=== PATIENT | male | born 1965 | race Caucasian/White ===

== ENCOUNTER 2022-05-13 07:17 | Day surgery (SDC) | payer OTHER ==
[2022-05-13] VITALS (9 sets, daily range): BP systolic 112–166; BP diastolic 90–136
[~2022-05-13] VITALS: Ht 187 cm; Wt 140.0 kg
[2022-05-13] MEDS ORDERED: NS IV 1000 ML 1,000 ML ONE (07:40)
[2022-05-13] MEDS ORDERED: NS IV 1000 ML 1,000 ML IV SCH (08:00)
[2022-05-13] MEDS ORDERED: LIDOCAINE 2% VISCOUS 15 ML UDC PO ONE (08:00)
[2022-05-13] MEDS ORDERED: ADENOSINE 6 MG/2 ML (ADENOCARD) VIAL IV ONE ×2 (08:09→08:15)
--- NOTE | 2022-05-13 08:09 | Diagnostic Imaging Report ---
INDICATION: Preop for cardioversion Frontal chest obtained at 0751 a.m. Heart is mildly enlarged. There is no focal infiltrate or pneumothorax or pleural fluid. IMPRESSION: Cardiomegaly with no acute process in the chest. Dictated by: Dictated on workstation # [id number]
--- NOTE | 2022-05-13 08:18 | Cardiac Procedure Note-CS/ASA ---
Pre-Procedure Note Pre-Op Procedure Note Date of Available H&P: May 05, 2022 Date H&P Reviewed: May 13, 2022 Time H&P Reviewed: 08:18 History & Physical: H&P Reviewed, Patient Examed, No changes noted Pre-Operative Diagnosis: atrial flutter Conscious Sedation Pre-Proced Time 08:18 ASA Score 3 For ASA 3 and 4: Consider anesthesia and medical clearance. Also, for patients with a history of failed moderate sedation consider anesthesia. Airway Lungs Heart ASA score ASA 1: a normal healthy patient ASA 2: a patient with a mild systemic disease (mid diabetes, controlled hypertension, obesity ASA 3: a patient with a severe systemic disease that limits activity (angina, COPD, prior Myocardial infarction) ASA 4: a patient with an incapacitating disease that is a constant threat to life (CHF, renal failure) ASA 5: a moribund patient not expected to survive 24 hrs. (ruptured aneurysm) ASA 6: a declared brain- patient whose organs are being harvested. For emergent operations, add the letter E after the classification Mallampati Classification Grade 3 Sedation Plan Analgesia, Amnesia, Plan communicated to team members, Discussed options with patient/fam, Discussed risks with patient/fam The patient is an appropriate candidate to undergo the planned procedure, sedation, and anesthesia. The patient immediately re-assessed prior to indication. LEROY EDWARD MD May 13, 2022 08:18
[2022-05-13] MEDS ORDERED: LIDOCAINE 2% VISCOUS 15 ML UDC ONE (08:19)
[2022-05-13 08:20] LABS: HEMATOCRIT 45 % (40-54); HEMOGLOBIN 15.1 g/dL (13.3-17.7); MEAN CORPUSCULAR HEMOGLOBIN 32 pg (25-34); MEAN CORPUSCULAR HGB CONC 34 g/dL (32-36); MEAN CORPUSCULAR VOLUME 96 fL (80-99); MEAN PLATELET VOLUME 9.4 fL (9.0-12.2); PLATELET COUNT 173 10^3/uL (130-400); WHITE BLOOD COUNT 7.4 10^3/uL (4.3-11.0)
[2022-05-13] MEDS ORDERED: proPOfol 200 MG/20 ML (DIPRIVAN) VIAL IV ONE (08:23)
[2022-05-13] MEDS ORDERED: MIDAZOLAM 5 MG/5 ML (VERSED) VIAL ONE (08:25)
--- NOTE | 2022-05-13 08:29 | Anesthesia-General Post-Op ---
MAC Patient Condition Mental Status/LOC: Same as Preop Cardiovascular: Satisfactory Nausea/Vomiting: Absent Respiratory: Satisfactory Pain: Controlled Complications: Absent Post Op Complications Complications None Follow Up Care/Instructions Patient Instructions None needed. Anesthesiology Discharge Order Discharge Order Patient is doing well, no complaints, stable vital signs, no apparent adverse anesthesia problems. No complications reported per nursing. DANNIE PEÑA CRNA May 13, 2022 08:29
[2022-05-13 08:33] LABS: INR 1.1 (0.8-1.4); PROTHROMBIN TIME PATIENT 14.5 SEC (12.2-14.7)
[2022-05-13] MEDS ORDERED: ATOR80TA76 PO (08:34)
[2022-05-13] MEDS ORDERED: DIPH25TA31 PO (08:34)
[2022-05-13] MEDS ORDERED: FURO-125 PO (08:34)
[2022-05-13] MEDS ORDERED: ASPI-1238 PO (08:34)
[2022-05-13] MEDS ORDERED: EZET10TA49 PO (08:34)
[2022-05-13] MEDS ORDERED: DILT240C87 PO (08:34)
[2022-05-13] MEDS ORDERED: MELA1TAB20 PO (08:34)
[2022-05-13] MEDS ORDERED: MELO15TA39 PO (08:34)
[2022-05-13] MEDS ORDERED: APIX5TAB PO (08:34)
[2022-05-13] MEDS ORDERED: FURO20TA4 PO (08:34)
[2022-05-13] MEDS ORDERED: SOUR1000 PO (08:34)
[2022-05-13] MEDS ORDERED: OMEP40CA6 PO (08:34)
[2022-05-13] MEDS ORDERED: DIPH-757 PO (08:34)
[2022-05-13] MEDS ORDERED: OMEG100032 PO ×2 (08:34)
[2022-05-13 08:41] LABS: ALBUMIN 4.4 GM/DL (3.2-4.5); BILIRUBIN,TOTAL 0.9 MG/DL (0.1-1.0); CALCIUM 9.2 MG/DL (8.5-10.1); CREATININE SERUM 0.84 MG/DL (0.60-1.30); POTASSIUM 3.8 MMOL/L (3.6-5.0); TOTAL PROTEIN 7.4 GM/DL (6.4-8.2)
[2022-05-13] MEDS ORDERED: DABI150C5 PO (09:46)
--- NOTE | 2022-05-13 09:47 | Discharge Inst-Post CATH ---
Discharge Inst-CATH/EP Problems Reviewed?: Yes Post Cardiac Cath/EP D/C Inst Follow Up/Plan Appointment with Dr. Sanchez's office in 2 to 4 weeks <b>CARDIAC CATH/EP PROCEDURE DISCHARGE INSTRUCTIONS</b> ACTIVITY * Go Home directly and rest. * Limit activity of the leg (or wrist if it was used) for 7 days including aer obics, swimming, jogging, bicycling, etc. * Restrict stair-climbing for 7 days if possible, if not, climb up with your non-cath leg, then bring together on the same step. * Avoid lifting, pushing, pulling or excessive movement of the affected extremi ty for 7 days. * Customary sexual activity may be resumed after 2 days-use caution not to use a position that strains or causes pain to the affected extremity. * No driving for 24 hours. * NO SMOKING. * Avoid straining for bowel movements for 7 days. * Gentle walking on level ground is allowed. * Returning to work will depend on the type of procedure and the results. Your doctor will discuss this with you. CALL YOUR DOCTOR FOR ANY OF THE FOLLOWING: *If bleeding from the puncture site occurs- Apply gentle pressure to site with clean cloth and call your doctor or EMS. * If a knot or lump forms under the skin, increases in size, or causes pain. * If bruising appears to be worsening or moving further down your leg instead of disappearing. * Temperature above 101 F. CARE OF YOUR GROIN INCISION; * Bruising or purple discoloration of the skin near the puncture site is common. * You may shower only, no bathtub bathing for 5 days. Be careful to avoid slipping as your leg may feel stiff. * If a closure device was used on your femoral artery, please see the attached guide regarding care of the device and your leg. * Leave dressing on FOR 24 hours. CARE OF YOUR WRIST INCISION; * Bruising or purple discoloration of the skin near the puncture site is common. * You may shower. * DO NOT submerge wrist. * Leave dressing on FOR 24 hours. LEROY SANCHEZ MD May 13, 2022 09:47
--- NOTE | 2022-05-13 09:48 | Clinic Account Progress/Dx ---
Clinic Account Progress/Dx DIAGNOSIS: Date Seen by Provider: May 13, 2022 Time Seen by Provider: 09:47 Paroxysmal atrial flutter Palpitation Hypertension Hyperlipidemia LEROY EDWARD MD May 13, 2022 09:48
== END 2022-05-13 10:04 | disposition home or self-care (01) ==
LOC: CATH 07:17
PROVIDERS: ATTEND Internal Medicine Cardiovascular Disease
DX: I48.92 Unspecified atrial flutter (principal); I10 Essential (primary) hypertension; E78.5 Hyperlipidemia, unspecified; Z79.01 Long term (current) use of anticoagulants; Z86.73 Personal history of transient ischemic attack (TIA), and cerebral infarction without residual deficits; E78.2 Mixed hyperlipidemia; E66.9 Obesity, unspecified; Z68.41 Body mass index [BMI] 40.0-44.9, adult; G47.30 Sleep apnea, unspecified; E11.9 Type 2 diabetes mellitus without complications
CPT/HCPCS: 36415; 71045; 80053; 85027; 85610; 85730; 87081; 93005; 93312

== ENCOUNTER → 2022-06-10 | Outpatient (CLI) | payer OTHER ==
[~2022-06-10] MED LIST: APIX5TAB PO; ASPI-1238 PO; ATOR80TA76 PO; DABI150C5 PO; DILT240C87 PO; DIPH-757 PO; DIPH25TA31 PO; EZET10TA49 PO; FURO-125 PO; FURO20TA4 PO; MELA1TAB20 PO; MELO15TA39 PO; OMEG100032 PO; OMEP40CA6 PO; REGADENOSON 0.4 MG/5 ML SYR (LEXISCAN) IV ONE; SOUR1000 PO; meTOprolol 5 MG/5 ML (LOPRESSOR) VIAL IV ONE; meTOprolol 5 MG/5 ML (LOPRESSOR) VIAL ONE
[2022-06-10] MEDS: CATHETER FLUSH 10 ML SYR IVP PRN ×2 (12:02→12:20)
[2022-06-10 13:29] VITALS: BP 229/102
--- NOTE | 2022-06-10 15:15 | Cardiology Stress Test Report ---
Stress Test Report Date of Procedure/Referring: Date of Procedure: Jun 10, 2022 PCP Nirmal Estrella Admitting Physician Admitting Physician: Attending Physician: Bridgette Bazan Indications: atrial flutter Baseline Heart Rate: 138 Baseline Blood Pressure: Blood Pressure Systolic: 229 Blood Pressure Diastolic: 102 Baseline Vitals Vital Signs Date Time Temp Pulse Resp B/P (MAP) Pulse Ox O2 Delivery O2 Flow Rate FiO2 06/10/22 13:29 138 229/102 (144) Baseline EKG: Baseline EKG: Atrial flutter with rapid ventricular response Summary After explaining the procedure to the patient, he signed a consent and then brought to the stress nuclear laboratory. Patient received 0.4 mg Lexiscan for stress test, ECG, heart rate and blood pressure were monitored continuously. Resting and stress dose of radio tracer were injected, imaging was acquired and reviewed in short axis, horizontal long axis and vertical long axis views. TID: 1.09 SSS: 7 SDS: 0 EF: 38 1. Patient tolerated Lexiscan well 2. Baseline atrial flutter with rapid ventricular response persisted during test, patient received Lopressor 5 mg IV at the end of the test. 3. Baseline hypertension persisted during test 4. Fixed defect involving the mid to apical inferior wall with no reversibility 5. Normal left ventricular size with diffuse hypokinesia with ejection fraction 38%, gated images are unreliable due to underlying atrial flutter Copy Copies To 1: CARIDAD HURLEY MD Copies To 2: [facility]/LEROY HERRERA MD Jun 10, 2022 15:15
== END ==
LOC: CARD 11:26
PROVIDERS: ATTEND Physician Assistant
DX: I11.9 Hypertensive heart disease without heart failure (principal); I25.10 Atherosclerotic heart disease of native coronary artery without angina pectoris; I48.91 Unspecified atrial fibrillation
CPT/HCPCS: 78452; 93017; 93306

== ENCOUNTER 2022-07-08 07:27 | Day surgery (SDC) | payer OTHER ==
[~2022-07-08] VITALS: Ht 188 cm; Wt 140.0 kg
[~2022-07-08 07:27] MED LIST changes: -REGADENOSON 0.4 MG/5 ML SYR (LEXISCAN) IV ONE; -meTOprolol 5 MG/5 ML (LOPRESSOR) VIAL IV ONE; -meTOprolol 5 MG/5 ML (LOPRESSOR) VIAL ONE
[2022-07-08] MEDS ORDERED: NS IV 1000 ML 1,000 ML ONE (07:44)
[2022-07-08] MEDS ORDERED: LIDOCAINE 2% VISCOUS 15 ML UDC ONE (07:44)
[2022-07-08] MEDS ORDERED: LIDOCAINE 2% VISCOUS 15 ML UDC PO ONE (07:45)
[2022-07-08] MEDS ORDERED: NS IV 1000 ML 1,000 ML IV ONE (07:45)
[2022-07-08] MEDS ORDERED: NS IV 1000 ML 1,000 ML IV SCH (07:45)
[2022-07-08 07:57] VITALS: BP 152/106
[2022-07-08 08:09] LABS: HEMATOCRIT 51 % (40-54); HEMOGLOBIN 17.2 g/dL (13.3-17.7); MEAN CORPUSCULAR HEMOGLOBIN 32 pg (25-34); MEAN CORPUSCULAR HGB CONC 34 g/dL (32-36); MEAN CORPUSCULAR VOLUME 94 fL (80-99); MEAN PLATELET VOLUME 9.5 fL (9.0-12.2); PLATELET COUNT 174 10^3/uL (130-400)
[2022-07-08 08:21] LABS: INR 1.8 (0.8-1.4); PROTHROMBIN TIME PATIENT 21.2 SEC (12.2-14.7)
[2022-07-08 08:27] LABS: ALANINE AMINOTRANSFERASE 33 U/L (0-55); ALKALINE PHOSPHATASE 114 U/L (40-136); BILIRUBIN,TOTAL 1.1 MG/DL (0.1-1.0); BUN/CREATININE RATIO 14; CALCIUM 9.7 MG/DL (8.5-10.1); CARBON DIOXIDE 22 MMOL/L (21-32); CHLORIDE 107 MMOL/L (98-107); CREATININE SERUM 0.91 MG/DL (0.60-1.30); GFR ESTIMATED 98; GLUCOSE 91 MG/DL (70-105); POTASSIUM 3.8 MMOL/L (3.6-5.0); SODIUM 141 MMOL/L (135-145); TOTAL PROTEIN 8.5 GM/DL (6.4-8.2)
[2022-07-08] MEDS ORDERED: LORA10TA7 PO (08:41)
[2022-07-08] MEDS ORDERED: SEMA1PEN3 SQ (08:41)
[2022-07-08] MEDS ORDERED: WARF-48 PO (08:41)
[2022-07-08] MEDS ORDERED: SOUR1000 PO (08:44)
[2022-07-08] MEDS ORDERED: MIDAZOLAM 2 MG/2 ML (VERSED) VIAL ONE ×2 (09:28→09:36)
[2022-07-08] MEDS ORDERED: proPOfol 200 MG/20 ML (DIPRIVAN) VIAL IV ONE ×2 (09:28→09:36)
[2022-07-08 09:33] VITALS: BP 132/99
--- NOTE | 2022-07-08 09:42 | Discharge Inst-Post CATH ---
Discharge Inst-CATH/EP Problems Reviewed?: Yes Post Cardiac Cath/EP D/C Inst Follow Up/Plan Appointment with Dr. Sanchez's office in 2 to 4 weeks <b>CARDIAC CATH/EP PROCEDURE DISCHARGE INSTRUCTIONS</b> ACTIVITY * Go Home directly and rest. * Limit activity of the leg (or wrist if it was used) for 7 days including aer obics, swimming, jogging, bicycling, etc. * Restrict stair-climbing for 7 days if possible, if not, climb up with your non-cath leg, then bring together on the same step. * Avoid lifting, pushing, pulling or excessive movement of the affected extremi ty for 7 days. * Customary sexual activity may be resumed after 2 days-use caution not to use a position that strains or causes pain to the affected extremity. * No driving for 24 hours. * NO SMOKING. * Avoid straining for bowel movements for 7 days. * Gentle walking on level ground is allowed. * Returning to work will depend on the type of procedure and the results. Your doctor will discuss this with you. CALL YOUR DOCTOR FOR ANY OF THE FOLLOWING: *If bleeding from the puncture site occurs- Apply gentle pressure to site with clean cloth and call your doctor or EMS. * If a knot or lump forms under the skin, increases in size, or causes pain. * If bruising appears to be worsening or moving further down your leg instead of disappearing. * Temperature above 101 F. CARE OF YOUR GROIN INCISION; * Bruising or purple discoloration of the skin near the puncture site is common. * You may shower only, no bathtub bathing for 5 days. Be careful to avoid slipping as your leg may feel stiff. * If a closure device was used on your femoral artery, please see the attached guide regarding care of the device and your leg. * Leave dressing on FOR 24 hours. CARE OF YOUR WRIST INCISION; * Bruising or purple discoloration of the skin near the puncture site is common. * You may shower. * DO NOT submerge wrist. * Leave dressing on FOR 24 hours. LEROY SANCHEZ MD Jul 08, 2022 09:42
[2022-07-08] MEDS ORDERED: AMIO200T65 PO (09:44)
--- NOTE | 2022-07-08 09:52 | Anesthesia-General Post-Op ---
MAC Patient Condition Mental Status/LOC: Same as Preop Cardiovascular: Satisfactory Nausea/Vomiting: Absent Respiratory: Satisfactory Pain: Controlled Complications: Absent Post Op Complications Complications None Follow Up Care/Instructions Patient Instructions None needed. Anesthesiology Discharge Order Discharge Order Patient is doing well, no complaints, stable vital signs, no apparent adverse anesthesia problems. No complications reported per nursing. CJ DIAZ CRNA Jul 08, 2022 09:52
[2022-07-08] MEDS ORDERED: AMIODARONE FOR BOLUS 150 MG in NS (IVPB) 100 ML IV ONE (10:00)
== END 2022-07-08 10:55 ==
LOC: CATH 07:27
PROVIDERS: ATTEND Internal Medicine Cardiovascular Disease
DX: I48.0 Paroxysmal atrial fibrillation (principal); E11.9 Type 2 diabetes mellitus without complications; E78.2 Mixed hyperlipidemia; I63.9 Cerebral infarction, unspecified; I65.23 Occlusion and stenosis of bilateral carotid arteries; I10 Essential (primary) hypertension; G47.30 Sleep apnea, unspecified; Z79.01 Long term (current) use of anticoagulants
CPT/HCPCS: 36415; 80053; 85027; 85610; 85730; 87081; 92960; 93005; 93312

== ENCOUNTER → 2022-09-25 | Day surgery (SDC) | payer OTHER ==
[~2022-09-25] VITALS: Ht 187.9 cm; Wt 127.0 kg
[~2022-09-25] MED LIST changes: +AMIO200T65 PO; +ASPIRIN E.C. 81 MG (ECOTRIN) TAB PO SCH; +CLOPIDOGREL 75 MG (PLAVIX) TABLET PO SCH; +LIDOCAINE 1% INJ 20 ML VIAL ONE; +LORA10TA7 PO; -MELA1TAB20 PO; +MELA1TAB72 PO; +NS IV 1000 ML 1,000 ML IV SCH; +PATIENT MAY USE OWN MEDS, ALL PO SCH; +SEMA1PEN3 SQ; +WARF-48 PO
[2022-09-25 10:12] VITALS: BP 136/71
--- NOTE | 2022-09-25 10:42 | Implantation of Loop Monitor ---
Implant of Loop Monitior IMPLANTATION OF LOOP MONITOR REPORT DATE OF PROCEDURE: 09/25/22 PREOP DIAGNOSIS: Paroxysmal atrial fibrillation POSTOP DIAGNOSIS: Paroxysmal atrial fibrillation PROCEDURE DETAILS: The patient is a 57 male with history of paroxysmal atrial fibrillation requiring long-term surveillance. Therefore implantable loop recorder was discussed and agreed with the patient. Informed consent was taken. All risks and complications were discussed at length. The patient was draped and prepped in the usual sterile fashion. Local anesthesia was lidocaine, which was given in the substernal area close to the 4th intercostal space. Loop monitor [employer] with serial number [id number] was implanted according to the protocol. Steri- Strips were placed at the end of the procedure. There were no complications and the patient tolerated the procedure well. The device was interrogated with a voltage of. ANESTHESIA: Local anesthesia with lidocaine. COMPLICATIONS: None CONTRAST/FLUOROSCOPY: None CONCLUSION: Successful implantation of loop monitor with no complication FINAL DIAGNOSIS: Paroxysmal atrial fibrillation Palpitation Hypertension LEROY EDWARD MD September 25, 2022 10:42
== END ==
LOC: CATH 09:01
PROVIDERS: ATTEND Internal Medicine Cardiovascular Disease
DX: I48.0 Paroxysmal atrial fibrillation (principal); I10 Essential (primary) hypertension; E78.2 Mixed hyperlipidemia; I65.23 Occlusion and stenosis of bilateral carotid arteries; I63.9 Cerebral infarction, unspecified; E11.9 Type 2 diabetes mellitus without complications; Z79.82 Long term (current) use of aspirin; Z79.01 Long term (current) use of anticoagulants; Z87.891 Personal history of nicotine dependence
CPT/HCPCS: 92960